=== PATIENT | female | born 1955 | race Caucasian/White ===

== ENCOUNTER 2017-09-03 14:00 | Inpatient (IN) | payer BC, MEDICARE ==
[~2017-09-03] VITALS: Ht 154.9 cm; Wt 99.5 kg
[~2017-09-03 14:00] MED LIST: ATOR40TA52 PO; CHOL10006 PO; CLO01T PO; CLON0.1T PO; FERR1TAB5 PO; FURO40TA4 PO; GABA100C9 PO; GLIP-116 PO; HYDR25TA4 PO; LISI-646 PO; MUPI2OIN10 EACHNOSTRI; PANT40T PO; SITA100T7 PO; SITA50TA28 PO; TRAZ50TA2 PO
[2017-09-03 15:18] LABS: Basophils # (auto) 0 uL; Basophils % (auto) 0.6 % (0.0-2.0); Eosinophils # (auto) 0.1 uL; Eosinophils % (auto) 2.5 % (0.0-7.0); Hematocrit 30.4 % (36.0-46.0); Lymphocytes # (auto) 0.8 uL; Lymphocytes % (auto) 13.8 % (10.0-50.0); Mean Corpuscular Hemoglobin 31.5 pg (28.0-32.0); Mean Corpuscular Hgb Conc. 32.8 g/dL (32.0-36.0); Mean Corpuscular Volume 95.8 fL (80.0-100.0); Monocytes # (auto) 0.6 uL; Monocytes % (auto) 9.9 % (0.0-12.0); Neutrophils # (auto) 4.4 uL; Neutrophils % (auto) 73.2 % (37.0-80.0); Platelet Count (auto) 280 10^3/uL (140-450); Red Blood Cells 3.17 10^6/uL (4.0-5.20); Red Cell Distribution Width 15.3 % (11.8-14.3)
[2017-09-03 15:28] LABS: BUN/Creatinine Ratio 20.1; Calcium 8.4 mg/dL (8.5-10.1); Magnesium 2.4 mg/dL (1.6-2.6); Potassium 4.8 mmol/L (3.5-5.1)
[2017-09-03 15:33] LABS: Bilirubin, Total 0.2 mg/dL (0.2-1.0); Total Protein 6.9 g/dL (6.4-8.2)
[2017-09-03] MEDS ORDERED: traZODone HCL 50 MG TAB PO PRN (21:30)
[2017-09-03] MEDS ORDERED: FUROSEMIDE 40 MG/4 ML VIAL IV ONE ×2 (21:30→21:45)
[2017-09-03] MEDS ORDERED: DEXTROSE (50%) 50ML SYRG IV PRN (21:30)
[2017-09-03] MEDS ORDERED: HYDROcodone-ACET 5/325MG TAB PO PRN (21:30)
[2017-09-03] MEDS ORDERED: ACETAMINOPHEN 500 MG TAB PO PRN (21:30)
[2017-09-03 21:58] LABS: Urine Bacteria FEW /hpf (None Seen); Urine Blood 1+ /uL (Negative); Urine Specific Gravity 1.016 (1.001-1.035); Urine WBC 52 /hpf (0 - 5); Urine WBC Clumps PRESENT /hpf (None Seen)
[2017-09-03] MEDS: InsuLIN REG 1unit/0.01ml Soln (100units/ml) SC SCH (22:00)
[2017-09-03] MEDS: ACCU-CHEK COMFORT CURVE STRIP VI SCH (22:00)
[2017-09-03] MEDS: ATORVASTATIN 20 MG TAB PO SCH (22:37)
[2017-09-03] MEDS: METOPROLOL TARTRATE 25 MG TAB PO SCH (22:37)
[2017-09-03] MEDS ORDERED: GABA300C10 PO (23:36)
[2017-09-03] MEDS ORDERED: FURO40TA PO (23:37)
[2017-09-03] MEDS ORDERED: LISI40TA PO (23:38)
[2017-09-03] MEDS ORDERED: MET50T GT (23:38)
[2017-09-03] MEDS ORDERED: SITA100T7 PO (23:39)
[2017-09-03] MEDS ORDERED: GLIP-116 PO (23:39)
[2017-09-03] MEDS ORDERED: FAM20T PO (23:40)
[2017-09-04] VITALS (7 sets, daily range): BP systolic 123–193; BP diastolic 50–72
[2017-09-04] MEDS ORDERED: cefTRIAXone 1GM/10ml IVPUSH 10 ML IV ONE
[2017-09-04] MEDS: ACCU-CHEK COMFORT CURVE STRIP VI SCH ×4 (06:21→21:52)
[2017-09-04] MEDS: InsuLIN REG 1unit/0.01ml Soln (100units/ml) SC SCH ×4 (06:21→22:11)
[2017-09-04 06:24] LABS: Basophils # (auto) 0 uL; Basophils % (auto) 0.7 % (0.0-2.0); Eosinophils # (auto) 0.2 uL; Eosinophils % (auto) 3.8 % (0.0-7.0); Hematocrit 27.5 % (36.0-46.0); Lymphocytes # (auto) 1.2 uL; Lymphocytes % (auto) 26.2 % (10.0-50.0); Mean Corpuscular Hemoglobin 31.4 pg (28.0-32.0); Mean Corpuscular Hgb Conc. 32.7 g/dL (32.0-36.0); Mean Corpuscular Volume 96.1 fL (80.0-100.0); Monocytes # (auto) 0.7 uL; Neutrophils # (auto) 2.6 uL; Neutrophils % (auto) 55.3 % (37.0-80.0); Nucleated Red Blood Cells % 0.1 %; Platelet Count (auto) 224 10^3/uL (140-450); Red Blood Cells 2.86 10^6/uL (4.0-5.20); Red Cell Distribution Width 15.5 % (11.8-14.3); White Blood Cell 4.7 10^3/uL (4.4-10.8)
[2017-09-04 06:37] LABS: BUN/Creatinine Ratio 21.2; Calcium 8.2 mg/dL (8.5-10.1); Potassium 4.2 mmol/L (3.5-5.1)
[2017-09-04] MEDS: cloNIDine HCL 0.1 MG TAB PO PRN ×2 (07:54→17:35)
[2017-09-04] MEDS ORDERED: GABAPENTIN 400 MG CAP PO SCH (10:00)
[2017-09-04] MEDS ORDERED: ASPirin-EC 81 mg tab PO SCH (10:00)
[2017-09-04] MEDS ORDERED: FUROSEMIDE 40 MG/4 ML VIAL IV SCH (10:00)
[2017-09-04] MEDS: FUROSEMIDE 40 MG/4 ML VIAL IV SCH ×2 (10:35→21:43)
[2017-09-04] MEDS: ASPirin-EC 81 mg tab PO SCH (10:35)
[2017-09-04] MEDS: METOPROLOL TARTRATE 25 MG TAB PO SCH ×2 (10:36→21:43)
[2017-09-04] MEDS ORDERED: NIFEdipine ER 30 MG TAB PO ONE (14:30)
[2017-09-04 18:33] LABS: Protein, Urine 105.3 mg/dL (0.0-11.9)
[2017-09-04] MEDS ORDERED: cefTRIAXone 1GM/10ml IVPUSH 10 ML IV SCH (21:00)
[2017-09-04] MEDS: cefTRIAXone 1GM/10ml IVPUSH 10 ML IV SCH (21:41)
[2017-09-04] MEDS: ATORVASTATIN 20 MG TAB PO SCH (21:42)
[2017-09-04] MEDS ORDERED: cloNIDine HCL 0.1 MG TAB PO SCH (22:00)
[2017-09-05 04:41] VITALS: BP 151/62
[2017-09-05 06:21] LABS: Basophils # (auto) 0 uL; Basophils % (auto) 0.2 % (0.0-2.0); Eosinophils # (auto) 0.2 uL; Eosinophils % (auto) 2.6 % (0.0-7.0); Hematocrit 28.3 % (36.0-46.0); Hemoglobin 9.4 g/dL (12.2-16.2); Lymphocytes % (auto) 15.4 % (10.0-50.0); Mean Corpuscular Hemoglobin 31.5 pg (28.0-32.0); Mean Corpuscular Hgb Conc. 33.4 g/dL (32.0-36.0); Mean Corpuscular Volume 94.3 fL (80.0-100.0); Monocytes # (auto) 0.7 uL; Monocytes % (auto) 11.2 % (0.0-12.0); Neutrophils # (auto) 4.7 uL; Neutrophils % (auto) 70.6 % (37.0-80.0); Platelet Count (auto) 243 10^3/uL (140-450); Red Cell Distribution Width 15.3 % (11.8-14.3); White Blood Cell 6.6 10^3/uL (4.4-10.8)
[2017-09-05 06:40] LABS: BUN/Creatinine Ratio 18.7; Calcium 8.3 mg/dL (8.5-10.1); Potassium 4.2 mmol/L (3.5-5.1)
[2017-09-05] MEDS: InsuLIN REG 1unit/0.01ml Soln (100units/ml) SC SCH ×4 (07:00→21:47)
[2017-09-05] MEDS: ACCU-CHEK COMFORT CURVE STRIP VI SCH ×4 (07:00→21:33)
[2017-09-05 08:00] VITALS: BP 147/61
[2017-09-05] MEDS: cefTRIAXone 1GM/10ml IVPUSH 10 ML IV SCH ×2 (08:36→21:09)
[2017-09-05] MEDS ORDERED: NIFEdipine ER 30 MG TAB PO SCH (10:00)
[2017-09-05] MEDS ORDERED: PNEUMOCOCCAL VACC POLYS 25 MCG/0.5 ML VIAL IM ONE (10:00)
[2017-09-05] MEDS: METOPROLOL TARTRATE 25 MG TAB PO SCH (10:00)
[2017-09-05] MEDS ORDERED: INFLUENZA QUAD 2017-2018 0.5 ML SYRG IM ONE (10:00)
[2017-09-05] MEDS: FLORASTOR (S. BOULARDII) 250 MG CAP PO SCH (10:04)
[2017-09-05] MEDS: ASPirin-EC 81 mg tab PO SCH (10:04)
[2017-09-05] MEDS: GABAPENTIN 400 MG CAP PO SCH (10:04)
[2017-09-05] MEDS: FUROSEMIDE 40 MG/4 ML VIAL IV SCH (10:05)
[2017-09-05 13:18] VITALS: BP 158/69
[2017-09-05] MEDS ORDERED: CIPR-173 PO (15:59)
[2017-09-05] MEDS ORDERED: MET25T PO (15:59)
[2017-09-05] MEDS ORDERED: NIF30XLT PO (15:59)
[2017-09-05] MEDS ORDERED: ASP81EC PO (15:59)
[2017-09-05] MEDS ORDERED: ATOR20TA50 PO (15:59)
[2017-09-05] MEDS ORDERED: FURO40TA PO (15:59)
[2017-09-05] MEDS ORDERED: MUPI2OIN10 EACHNOSTRI (15:59)
[2017-09-05 17:31] VITALS: BP 160/54
[2017-09-05] MEDS: NIFEdipine ER 30 MG TAB PO SCH (21:20)
[2017-09-05] MEDS: ATORVASTATIN 20 MG TAB PO SCH (21:20)
[2017-09-05 22:09] VITALS: BP 144/65
[2017-09-06 04:52] VITALS: BP 134/79
[2017-09-06] MEDS: ACCU-CHEK COMFORT CURVE STRIP VI SCH ×2 (06:12→12:28)
[2017-09-06 06:25] LABS: BUN/Creatinine Ratio 19.7; Calcium 8.1 mg/dL (8.5-10.1); Potassium 4.1 mmol/L (3.5-5.1)
[2017-09-06] MEDS: InsuLIN REG 1unit/0.01ml Soln (100units/ml) SC SCH ×2 (06:35→12:28)
[2017-09-06 08:31] VITALS: BP 130/50
[2017-09-06] MEDS: cefTRIAXone 1GM/10ml IVPUSH 10 ML IV SCH (09:20)
[2017-09-06] MEDS: NIFEdipine ER 30 MG TAB PO SCH (10:00)
[2017-09-06] MEDS ORDERED: METOPROLOL TARTRATE 25 MG TAB PO SCH (10:00)
[2017-09-06] MEDS: GABAPENTIN 400 MG CAP PO SCH (10:53)
[2017-09-06] MEDS: ASPirin-EC 81 mg tab PO SCH (10:53)
[2017-09-06] MEDS: FLORASTOR (S. BOULARDII) 250 MG CAP PO SCH (10:53)
[2017-09-06 12:20] VITALS: BP 116/57
[2017-09-06 12:37] VITALS: BP 116/57
[2017-09-06] MEDS ORDERED: CEPH-37 PO (15:14)
== END 2017-09-06 14:04 | disposition home health service (06) | DRG 291 ==
LOC: EDBD 14:00 → ER 14:00 → TELE-EAST 14:01
PROVIDERS: ADMIT Nurse Practitioner Family; ATTEND Hospitalist
DX: I13.0 Hypertensive heart and chronic kidney disease with heart failure and stage 1 through stage 4 chronic kidney disease, or unspecified chronic kidney disease (principal); I50.43 Acute on chronic combined systolic (congestive) and diastolic (congestive) heart failure; N17.0 Acute kidney failure with tubular necrosis; N39.0 Urinary tract infection, site not specified; Z68.41 Body mass index [BMI] 40.0-44.9, adult; E11.22 Type 2 diabetes mellitus with diabetic chronic kidney disease; N18.3 Chronic kidney disease, stage 3 (moderate); E11.65 Type 2 diabetes mellitus with hyperglycemia; D64.9 Anemia, unspecified; E66.9 Obesity, unspecified; E78.5 Hyperlipidemia, unspecified; F32.9 Major depressive disorder, single episode, unspecified; F41.9 Anxiety disorder, unspecified; G47.00 Insomnia, unspecified; I87.8 Other specified disorders of veins; B96.20 Unspecified Escherichia coli [E. coli] as the cause of diseases classified elsewhere; Z16.29 Resistance to other single specified antibiotic; J44.9 Chronic obstructive pulmonary disease, unspecified; Z79.899 Other long term (current) drug therapy; Z82.49 Family history of ischemic heart disease and other diseases of the circulatory system; Z23 Encounter for immunization; Z82.5 Family history of asthma and other chronic lower respiratory diseases; Z91.19 Patient's noncompliance with other medical treatment and regimen; Z79.84 Long term (current) use of oral hypoglycemic drugs; Z88.5 Allergy status to narcotic agent; Z90.49 Acquired absence of other specified parts of digestive tract
CPT/HCPCS: 36415; 51702; 71045; 80048; 80053; 81001; 82570; 82962; 83036; 83735; 83880; 84156; 84484; 85025; 87077; 87081; 87086; 87088; 87186; 87205; 87493; 93005; 93970; 96374; 96375; J1815